=== PATIENT | male | born 1995 | race Two or more races ===

== ENCOUNTER 2024-10-15 02:49 | Emergency (ER) | payer MEDICAID ==
[~2024-10-15] VITALS: Ht 167.6 cm; Wt 68.0 kg
[2024-10-15 03:09] LABS: BASOPHILS % (AUTO) 0.6 % (0.0-2.0); EOSINOPHILS % (AUTO) 0.3 % (0.0-7.0); HEMATOCRIT 42.4 % (36.7-47.1); HEMOGLOBIN 14.7 g/dL (12.5-16.3); LYMPHOCYTES # (AUTO) 1.3 K/uL (0.8-4.8); LYMPHOCYTES % (AUTO) 18.2 % (20.5-51.5); MEAN CORPUSCULAR HEMOGLOBIN 29.3 uug (23.8-33.4); MEAN CORPUSCULAR HGB CONC 35 g/dL (32.5-36.3); MEAN CORPUSCULAR VOLUME 84.4 fL (73.0-96.2); MONOCYTES # (AUTO) 0.9 K/uL (0.1-1.30); MONOCYTES % (AUTO) 12.6 % (0.0-11.0); NEUTROPHILS % (AUTO) 68.3 % (38.5-71.5); PLATELET COUNT (AUTO) 200 K/uL (152-348); RED BLOOD CELL COUNT(AUTO) 5.02 MIL/uL (4.06-5.63); RED CELL DISTRIBUTION WIDTH 13.5 % (12.1-16.2); WHITE BLOOD COUNT (AUTO) 7.3 K/uL (3.6-10.2)
[2024-10-15 03:15] LABS: DIFFERENTIAL COMMENT 1
[2024-10-15 03:19] LABS: CALCIUM 9.1 mg/dL (8.5-10.1); CARBON DIOXIDE 25 mmol/L (21-32); CHLORIDE 105 mmol/L (98-107); CREATININE 1.1 mg/dL (0.6-1.3); GLUCOSE 114 mg/dL (74-106); POTASSIUM 3.6 mmol/L (3.5-5.1); SODIUM SERUM 144 mmol/L (136-145); UREA NITROGEN, BLOOD 15 mg/dL (7-18)
[2024-10-15 03:25] LABS: ALANINE AMINOTRANSFERASE 28 U/L (16-63); ALKALINE PHOSPHATASE 71 U/L (50-136); ASPARTATE AMINOTRANSFERASE 20 U/L (15-37); BILIRUBIN,DIRECT 0.3 mg/dL (0.0-0.2); BILIRUBIN,TOTAL 1.1 mg/dL (0.2-1.0); TOTAL PROTEIN, SERUM 7.5 g/dL (6.4-8.2)
[2024-10-15 03:26] LABS: ACETAMINOPHEN < 10.0 ug/mL (10-30)
[2024-10-15 03:27] LABS: ETHANOL < 3 MG/DL (0-10)
[2024-10-15 03:35] LABS: *BILIRUBIN,URIN 1+ (NEGATIVE); *BLOOD, URINE 2+ (NEGATIVE); *COLOR,URINE YELLOW (YELLOW); *KETONES,URINE 2+ (NEGATIVE); *PROTEIN,URINE 1+ (NEGATIVE); LEUKOCYTE ESTERASE ,URINE NEGATIVE (NEGATIVE); NITRITE, URINE NEGATIVE (NEGATIVE); UGLUCOSE NEGATIVE (NEGATIVE)
[2024-10-15 03:46] LABS: *AMPHETAMINE, URINE NEGATIVE (NEGATIVE); *BARBITURATE, URINE NEGATIVE (NEGATIVE); *BENZODIAZEPINE, URINE NEGATIVE (NEGATIVE); *CANNABINOID, URINE POSITIVE (NEGATIVE); *COCCAINE, URINE NEGATIVE (NEGATIVE); *OPIATE, URINE NEGATIVE (NEGATIVE); *PHENCYCLIDINE SCREEN,URINE NEGATIVE (NEGATIVE); FENTANYL, URINE NEGATIVE (NEGATIVE)
[2024-10-15 03:51] LABS: *CLARITY,URINE HAZY (CLEAR)
[2024-10-15 04:00] LABS: BACTERIA,URINE NONE SEEN /HPF (NONE SEEN); SQUAMOUS EPITHELIAL CELL,UR MODERATE /HPF (NONE SEEN); WBC,URINE 0-3 /HPF (0-3)
[2024-10-15] MEDS ORDERED: HALOPERIDOL LACTATE 5 MG/1 ML VIAL ONE (05:02)
[2024-10-15] MEDS: HALOPERIDOL LACTATE 5 MG/1 ML VIAL IM ONE (05:13)
[2024-10-15] MEDS ORDERED: LORAZEPAM 1 MG TABLET ONE (09:47)
[2024-10-15] MEDS ORDERED: DICYCLOMINE HCL 20 MG TABLET ONE (09:47)
[2024-10-15] MEDS: DICYCLOMINE HCL 10 MG CAPSULE PO ONE (09:53)
[2024-10-15] MEDS: LORAZEPAM 0.5 MG TABLET PO ONE (09:53)
[2024-10-16 10:25] VITALS: O2SAT 98
== END 2024-10-16 15:25 ==
LOC: ER 02:55
DX: R41.82 Altered mental status, unspecified (principal); F20.9 Schizophrenia, unspecified; I51.7 Cardiomegaly; Z87.891 Personal history of nicotine dependence; Z20.822 Contact with and (suspected) exposure to COVID-19
CPT/HCPCS: 87804 ×2; 80076; 80048; 81001; 85025; 87426; 36415; 93005; 70450; 99285; 96372; 80299; 80320; 80307; J1630; A4606; A4663; C1758; G0480